=== PATIENT | male | born 1945 | race Caucasian/White ===

== ENCOUNTER 2017-01-03 11:55 | Inpatient (IN) | payer MEDICARE ==
[~2017-01-03] VITALS: Ht 193 cm; Wt 123.2 kg
--- NOTE | ~2017-01-03 | OP ---
PATIENT NAME: KELLY DENTON MEDICAL RECORD: [id number] :47 LOCATION:D. D.2136 ADMISSION DATE:01/03/17 SURGEON: DORI PHELPS MD DATE OF OPERATION: 01/09/2017 PROCEDURE: EGD with biopsy. ATTENDING PHYSICIAN: Dr. Chauncey Min. INDICATIONS: Mr. Denton is a delightful 71-year-old gentleman with history of coronary artery disease, who was admitted secondary to symptoms of nausea, vomiting, upper abdominal pain and diarrhea. His lipase was mildly elevated at [address] of the abdomen and pelvis 01/08/2017 showed no acute findings seen in the abdomen or pelvis, diverticulosis, the liver appeared to have mild fatty infiltration along with a small hiatal hernia. There is no significant peripancreatic stranding. His triglycerides were 142 on 01/04/2017. He is beginning to feel better. He has no history of significant alcohol consumption. He drinks alcohol on a rare occasion. He has had a cholecystectomy in the past. Ultrasound 01/07/2017 showed lobulation of the kidneys, mild increased echogenicity in the renal cortex and mildly prominent liver and spleen in size and the gallbladder was not present. Because he has had some persistent nausea with some vomiting, he presents for inpatient EGD. PREMEDICATIONS: Total IV anesthesia (propofol 220 mg). INSTRUMENT: Olympus video gastroscope. PROCEDURE AND FINDINGS: After receiving informed consent, Mr. Denton's posterior pharynx was anesthetized with Cetacaine spray, placed in left lateral decubitus position, sedated as per anesthesia. After achieving an adequate level of sedation, gastroscope was introduced per orally and advanced to the duodenum without difficulty. The esophageal mucosa was notable for an irregularity in the mucosa at the Z-line suggestive of gastroesophageal reflux disease and biopsies were taken from the distal third of the esophagus. Small hiatal hernia is present. Gastric mucosa was notable for patchy erythema in the fundus and antrum and antral biopsies were obtained. There are a few small nonhemorrhagic ulcers in the distal body of the stomach and then numerous erosions noted in the body and antrum of the stomach (nonhemorrhagic). There were few waves of gastric peristalsis was noted during the exam. The duodenal bulbar mucosa was notable for prominent folds and erythema at the apex and biopsies were obtained. In the second portion of duodenum, the major ampulla was identified and appeared slightly prominent (may be a normal variant) and was biopsied. The gastroscope was then withdrawn. Mr. Denton tolerated the procedure well and no immediate complications. ASSESSMENT: 1. Irregular Z-line suggestive of gastroesophageal reflux disease, status post biopsy. 2. Small hiatal hernia. 3. Erosive gastritis, status post antral biopsies. 4. A few small gastric ulcers, nonhemorrhagic. 5. Duodenitis. 6. Resolving pancreatitis (lipase has been normal for several days). Etiology of pancreatitis, suspected to be viral secondary to a viral syndrome or dehydration. OPERATIVE REPORT [id number] KELLY DENTON RECOMMENDATIONS: 1. Follow up histopathology. 2. Avoid nonsteroidal anti-inflammatory drugs. 3. Recommend daily aspirin-B enteric coated. 4. Protonix 40 mg daily. 5. Reglan 5 mg a.c. (continue for several weeks and then discontinue if symptoms resolved). 6. Recommend follow up EGD, [place] corporate planner in 2 months to document healing of gastric ulcers. TRANSINT:[id number] Voice Confirmation ID: [id number] DOCUMENT ID: [id number] DORI PHELPS MD CC: SENIA MIRAMONTES MD [id number] DICTATION DATE: 01/09/17 1555 AQUATICS ASSISTANT DEPARTMENT HEAD: 01/09/17 2241 ADM IN [facility] [address] [place] [address]
[2017-01-03 12:38] LABS: BASOPHILS 0.1 % (0.0-2.0); EOSINOPHILS 0.1 % (0-7); HEMATOCRIT 43.6 % (42.0-54.0); HEMOGLOBIN 14.9 g/dL (13.5-17.5); IMMATURE GRANULOCYTES 0.2 % (0-5); MCH 30.4 pg (26.0-34.0); MCHC 34.2 g/dL (31.0-37.0); MEAN PLATELET VOLUME 10.5 fL (7.4-10.4); MONOCYTES 2.7 % (2-11); NEUTROPHILS 82.9 % (40-80); PLATELET COUNT 195 10x3/uL (130-400); RDW 12.7 % (11.5-14.5); WBC 9.2 10x3/uL (4.8-10.8)
[2017-01-03 12:51] LABS: ALBUMIN 3.5 g/dL (3.4-5.0); ANION GAP 16.9 mmol/L (8-16); BILIRUBIN - TOTAL 1.11 mg/dL (0.2-1.3); CALCIUM 8.2 mg/dL (8.5-10.1); CARBON DIOXIDE 21.9 mmol/L (21.0-32.0); CREATININE - SERUM 2.1 mg/dL (0.6-1.3); POTASSIUM - SERUM 4.8 mmol/L (3.5-5.1); PROTEIN - SERUM 7.1 g/dL (6.4-8.2)
[2017-01-03 16:59] LABS: APPEARANCE CLEAR (CLEAR); BILIRUBIN NEGATIVE (NEGATIVE); COLOR YELLOW (YELLOW); GLUCOSE 100 mg/dL (NEGATIVE); KETONE NEGATIVE (NEGATIVE); LEUKOCYTE ESTERASE NEGATIVE (NEGATIVE); NITRITE NEGATIVE (NEGATIVE); PROTEIN 2+ mg/dL (NEGATIVE); UROBILINOGEN NORMAL (NORMAL)
[2017-01-03 17:01] LABS: BACTERIA FEW /hpf (NONE SEEN); EPITHELIAL CELLS OCC /hpf (0-5); HYALINE CAST 0-5 /lpf (NONE SEEN); MUCUS <1+ /lpf (NONE SEEN); RED CELLS - URINE RARE /hpf (0-5); WHITE CELLS - URINE OCC /hpf (0-5)
--- NOTE | 2017-01-03 19:40 | NUR ---
received from ER, IV-LFA, FAMILY AT BEDSIDE, BED IS LOW, SRX2, PT IS A&O, DENIES ANY NEEDS, WILL CONTINUE TO MONITOR
[2017-01-03] MEDS ORDERED: AMBIEN10 MG PO (19:45)
[2017-01-03] MEDS ORDERED: ISOSORBIDE MONO30 M1 PO (19:45)
[2017-01-03] MEDS ORDERED: VITAMIN D250000 UNIT PO (19:46)
[2017-01-03] MEDS ORDERED: EFFIENT10 MG PO (19:48)
[2017-01-03] MEDS ORDERED: LEVEMIR INJ FLE (19:48)
[2017-01-03] MEDS ORDERED: ASPIRIN325 MG PO (19:49)
[2017-01-03] MEDS ORDERED: ENTRESTO 97 MG1 EACH PO (19:49)
[2017-01-03] MEDS ORDERED: COREG 3.1253.125 MG PO (19:50)
[2017-01-03] MEDS ORDERED: MORPHINE IMMEDI30 M1 PO (20:04)
[2017-01-03 20:27] VITALS: BP 136/80
[2017-01-04 00:04] VITALS: BP 94/54
[2017-01-04 01:33] VITALS: BMI 35.3
--- NOTE | 2017-01-04 03:23 | NUR ---
PT SLEEPING, CALL LIGHT IN REACH, WILL CONTINUE TO MONITOR
[2017-01-04 04:39] VITALS: BP 130/66
--- NOTE | 2017-01-04 07:45 | NUR ---
PATIENT AWAKE/ALERT ORIENT X4. LEFT FOREARM PERIPHERAL LINE D.5 LR AT 100CC/HR. VOICES NO C/O AT THIS TIME. CALL LIGHT WITHIN REACH
[2017-01-04 07:46] LABS: BASOPHILS 0.4 % (0.0-2.0); EOSINOPHILS 0.7 % (0-7); HEMATOCRIT 39.1 % (42.0-54.0); HEMOGLOBIN 13.4 g/dL (13.5-17.5); IMMATURE GRANULOCYTES 0.1 % (0-5); LYMPHOCYTES 30.4 % (15-50); MCH 30.3 pg (26.0-34.0); MCHC 34.3 g/dL (31.0-37.0); MCV 88.5 fL (80.0-100.0); MEAN PLATELET VOLUME 10.8 fL (7.4-10.4); MONOCYTES 6.8 % (2-11); NEUTROPHILS 61.6 % (40-80); PLATELET COUNT 185 10x3/uL (130-400); RBC 4.42 10x6/uL (4.20-6.10); RDW 12.9 % (11.5-14.5); WBC 7.2 10x3/uL (4.8-10.8)
[2017-01-04 08:00] VITALS: BP 123/58
[2017-01-04 08:20] LABS: CALCIUM 7.8 mg/dL (8.5-10.1); CARBON DIOXIDE 26.2 mmol/L (21.0-32.0); CHOL - HDL RATIO 4.6 ratio (2.3-4.9); CREATININE - SERUM 1.7 mg/dL (0.6-1.3); LDL-HDL RATIO 2.6 ratio (1.5-3.5); POTASSIUM - SERUM 4.2 mmol/L (3.5-5.1)
[2017-01-04 11:25] VITALS: BP 136/70
--- NOTE | 2017-01-04 11:55 | NUR ---
GLUCOSE LEVEL 148. NO SLIDING SCALE INSULIN GIVEN. PATIENT REMAINS NPO.
--- NOTE | 2017-01-04 12:33 | NUR ---
IV PATENT. CALL LIGHT IN REACH. LEONARDO NEEDS AT THIS TIME. WILL MONITOR.
--- NOTE | 2017-01-04 13:47 | NUR ---
PRN ZOFRAN GIVEN FOR NAUSEA
--- NOTE | 2017-01-04 15:19 | NUR ---
DR. MIRAMONTES INTO SEE PATIENT. NEW ORDERS RECEIVED. PATIENT CAN TAKE MEDICATION WITH SIPS OF H20
[2017-01-04 15:50] VITALS: BP 131/69
--- NOTE | 2017-01-04 16:57 | NUR ---
GLUCOSE LEVEL 145. NO SLIDING SCALE INSULIN GIVEN
--- NOTE | 2017-01-04 19:40 | NUR ---
ASSESSMENT DONE. PT LAYING IN BED WITH HOB ELEVATED. A/O. WATCHING TV. DENIES N/V OR PAIN. DENIES NEEDS. CALL LIGHT WITH IN REACH. WILL CONT. TO MONITOR.
[2017-01-04] MEDS ORDERED: PRAVACHOL80 MG PO (19:43)
[2017-01-04] MEDS ORDERED: NEURONTIN600 MG PO (19:44)
[2017-01-04 20:48] VITALS: BP 121/50
--- NOTE | 2017-01-04 23:38 | NUR ---
PT SLEEPING. APPEARS COMFORTABLE. RESP EVEN AND UNLABORED. CALL LIGHT WITH IN REACH. WILL CONT. TO MONITOR.
[2017-01-05 00:30] VITALS: BP 120/62
--- NOTE | 2017-01-05 01:56 | NUR ---
PT C/O NAUSEA. STATES HE AMBULATED TO THE RESTROOM AND WHEN HE GOT BACK TO THE BED HE WAS NAUSEATED. DENIES VOMITING OR ABD PAIN. CALL LIGHT WITH IN REACH. WILL CONT. TO MONITOR.
--- NOTE | 2017-01-05 02:51 | NUR ---
PT C/O ABD AND VOMITING. MORPHINE GIVE IV. PROVIDED EMESIS BASIN. COOL WASH CLOTH GIVEN FOR PT TO WASH FACE WITH. WILL CONT. TO MONITOR.
--- NOTE | 2017-01-05 03:14 | NUR ---
ROUTE DELIVERY DRIVER AT BEDSIDE FOR VS, NEEDS ADDRESSED. CALL LIGHT IN REACH. WILL CONT TO MONITOR.
--- NOTE | 2017-01-05 03:33 | NUR ---
PT'S IV SITE RED, PT C/O PAIN AT IV SIDE. IV REMOVED. RE-SITED NEW IV TO PT'S RIGHT HAND WITH A 22G X1 ATTEMPT. WILL CONT. TO MONITOR.
--- NOTE | 2017-01-05 03:49 | NUR ---
PT WITH INCREASE N/V AND ABD PAIN. ZOFRAN HAS BEEN INEFFECTIVE. NOTIFIED PANTRY COOK TO SEE IF ER DR WILL OK ORDER FOR PHENERGAN. WILL CONT. TO MONITOR.
--- NOTE | 2017-01-05 04:15 | NUR ---
PHENERGAN IV GIVEN PER ORDER. WILL CONT. TO MONITOR.
[2017-01-05 04:30] VITALS: BP 183/89
--- NOTE | 2017-01-05 05:51 | NUR ---
PT REPORTS SOME RELEIF FROM PHENERGAN. STATES " I AM STILL NAUSEATED, BUT IT IS A LITTLE BETTER." DENIES OTHER NEEDS AT THIS TIME. DENIES PAIN. CALL LIGHT WITH IN REACH. WILL CONT. TO MONITOR.
[2017-01-05 06:35] LABS: BASOPHILS 0.4 % (0.0-2.0); EOSINOPHILS 0.9 % (0-7); HEMATOCRIT 42.6 % (42.0-54.0); HEMOGLOBIN 14.5 g/dL (13.5-17.5); IMMATURE GRANULOCYTES 0.1 % (0-5); LYMPHOCYTES 17.1 % (15-50); MCH 30.3 pg (26.0-34.0); MCV 88.9 fL (80.0-100.0); NEUTROPHILS 76.5 % (40-80); PLATELET COUNT 217 10x3/uL (130-400); RBC 4.79 10x6/uL (4.20-6.10); RDW 12.7 % (11.5-14.5)
[2017-01-05 06:52] LABS: ANION GAP 12.8 mmol/L (8-16); CALCIUM 8.3 mg/dL (8.5-10.1); CARBON DIOXIDE 25.5 mmol/L (21.0-32.0); CREATININE - SERUM 1.5 mg/dL (0.6-1.3); POTASSIUM - SERUM 4.3 mmol/L (3.5-5.1)
[2017-01-05 07:04] LABS: WBC 9.3 10x3/uL (4.8-10.8)
--- NOTE | 2017-01-05 07:46 | NUR ---
AM ROUNDS - PT IN BED ON BACK. C/O 8 PAIN IN STOMACH AND NAUSEA. RIGHT HAND 22G D5 LR AT 100CC/HR. WILL CONTINUE TO MONITOR.
[2017-01-05 08:00] VITALS: BP 179/98
--- NOTE | 2017-01-05 08:42 | NUR ---
0840-EMESIS OF LIGHT YELLOW TO WASH BASIN. ZOFRAN 4 MG AND MORPHINE SULFATE 2 MG GIVEN SLOW IVP TO RIGHT WRIST. UP IN CHAIR. STATES THAT HE HAD TAKEN ORAL MORPHINE IN THE PAST AND HAS STOPPED TAKING IT. WILL CONTINUE TO FOLLOW.
--- NOTE | 2017-01-05 10:01 | NUR ---
CALL PLACED TO MIRIAN SHAH APN TO SEE ABOUT WHY ENTRESTO 97MG HAS BEEN HELD STATES HE IS NOT SUPPOSE TO MISS A DOSE. AWAITING CALL BACK.
[2017-01-05 12:00] VITALS: BP 154/82
[2017-01-05 13:08] VITALS: Ht 193 cm; Wt 123.2 kg
--- NOTE | 2017-01-05 15:27 | NUR ---
PATIENT STARTED ON CLEAR LIQUIDS PER MIRIAN SHAH APN. WATER AND JELLO GIVEN, INSTRUCTED PATIENT TO GO SLOWLY ON THEM.
--- NOTE | 2017-01-05 19:30 | NUR ---
RECEIVED REPORT, PT SITTING UP IN CHAIR, DENIES ANY NEEDS AT THIS TIME WILL CONTINUE TO MONITOR, CALL LIGHT IN REACH
[2017-01-05 22:46] VITALS: BP 113/71
--- NOTE | 2017-01-06 00:27 | NUR ---
CONVENIENCE STORE MANAGER AT BEDSIDE FOR VS. NEEDS ADDRESSED AT THIS TIME. CALL LIGHT IN REACH. WILL CONT TO MONITOR.
[2017-01-06 02:33] VITALS: BP 171/78
[2017-01-06 06:09] LABS: BASOPHILS 0.3 % (0.0-2.0); HEMOGLOBIN 14.6 g/dL (13.5-17.5); IMMATURE GRANULOCYTES 0.2 % (0-5); LYMPHOCYTES 20.2 % (15-50); MCH 30.2 pg (26.0-34.0); MONOCYTES 7.4 % (2-11); NEUTROPHILS 70.9 % (40-80); PLATELET COUNT 179 10x3/uL (130-400); RBC 4.83 10x6/uL (4.20-6.10); RDW 12.8 % (11.5-14.5); WBC 8.8 10x3/uL (4.8-10.8)
[2017-01-06 06:37] VITALS: BP 186/79
[2017-01-06 06:39] LABS: ANION GAP 11.8 mmol/L (8-16); CALCIUM 8.6 mg/dL (8.5-10.1); CARBON DIOXIDE 27.2 mmol/L (21.0-32.0); CREATININE - SERUM 1.5 mg/dL (0.6-1.3)
[2017-01-06 08:02] VITALS: BP 191/96
--- NOTE | 2017-01-06 08:37 | NUR ---
PT TOOK HOME MEDS. ENTRESTO 97-103MG. ONE TABLET PO.
[2017-01-06 12:04] VITALS: BP 184/106
[2017-01-06 15:54] VITALS: BP 148/84
--- NOTE | 2017-01-06 16:50 | NUR ---
PT TOOK HIS HOME SUPPLY OF ENTRESTO 97-103, ONE TABLET BY MOUTH.
[2017-01-06 21:58] VITALS: BP 149/70
[2017-01-07 02:03] VITALS: BP 142/70
--- NOTE | 2017-01-07 03:53 | NUR ---
NURSE ROUNDS 21:00 01/06/17 - PT LYING IN BED, AWAKE, ALERT, ORIENTED, DENIED NAUSEA AND PAIN AT THIS TIME. PT UP AD TEZ WITHOUT ANY DIFFICULTY. DENIES ANY ACUTE NEEDS. CONTINUE TO MONITOR CLOSELY. BED LOW, CALL LIGHT IN REACH, SIDE RAILS X2, HOB 10 DEGREES.
[2017-01-07 05:44] VITALS: BP 175/82
[2017-01-07 06:09] LABS: BASOPHILS 0.3 % (0.0-2.0); HEMATOCRIT 42.6 % (42.0-54.0); HEMOGLOBIN 14.5 g/dL (13.5-17.5); IMMATURE GRANULOCYTES 0.1 % (0-5); LYMPHOCYTES 22.2 % (15-50); MCH 30.1 pg (26.0-34.0); MCV 88.6 fL (80.0-100.0); MEAN PLATELET VOLUME 10.5 fL (7.4-10.4); MONOCYTES 5.7 % (2-11); NEUTROPHILS 70.7 % (40-80); PLATELET COUNT 193 10x3/uL (130-400); RBC 4.81 10x6/uL (4.20-6.10); RDW 12.4 % (11.5-14.5)
[2017-01-07 06:57] LABS: CALCIUM 8.2 mg/dL (8.5-10.1); CARBON DIOXIDE 28.7 mmol/L (21.0-32.0); CREATININE - SERUM 1.4 mg/dL (0.6-1.3); POTASSIUM - SERUM 3.7 mmol/L (3.5-5.1); THYROID STIMULATING HORMONE 1.73 uIU/mL (0.36-3.74)
--- NOTE | 2017-01-07 07:46 | NUR ---
AM ROUNDING- RECEIVED REPORT FROM LITHOGRAPHED PLATE INSPECTOR NURSE KUSH, MEAGAN. PT IS CURRENTLY UP GOING TO BATHROOM. FSBS ACHS. ON ROOM AIR. NO MONITOR. IV SEEN TO RIGHT WRIST WITH D5/LR RUNNING AT 100CC/HR. PT IS ALERT AND ORIENTED. UP AD TEZ. PT STATES HE HAS HAD A BETTER NIGHT LAST NIGHT THAN HE HAS HAD IN A FEW DAYS. PT STATES HE HAD NO N/V LAST NIGHT. NO NEED AT CURRENT TIME. WILL CONTINUE TO MONITOR AND CONTINUE WITH PLAN OF CARE.
[2017-01-07 09:06] VITALS: BP 170/80
[2017-01-07 13:32] VITALS: BP 90/60
--- NOTE | 2017-01-07 16:56 | NUR ---
CHECKED PTS BLOOD PRESSURE MANUALLY AND GOT 150/79 IN LEFT ARM.
--- NOTE | 2017-01-07 17:17 | NUR ---
Patient Name: KELLY DENTON Admission Status: ER Accout number: [id number] Admission Date: 01-03-2017 : 1945 Admission Diagnosis:UNSPECIFIED ABDOMINAL PAIN Attending: JORJE Current LOS: 4 Anticipated DC Date: 01-08-2017 Planned Disposition: Home Primary Insurance: MEDICARE PART A ONLY Discharge Planning Comments: * Is the patient Alert and Oriented? Yes 0 * How many steps to enter\exit or inside your home? NONE 0 * PCP DR[facility] WELCH, [facility] [place] [place] 0 * Pharmacy [facility] IN [facility] OR [facility]. 0 * Preadmission Environment Home with Family 0 * ADLs Independent 0 * Equipment Cane 0 * Other Equipment [facility] MED[facility] EQUIPMENT PROVIDER 0 * List name and contact numbers for known caregivers / representatives who currently or will assist patient after discharge: RENA DENTON, SPOUSE, 0 * Community resources currently utilized None 0 * Please name any agencies selected above. NONE 0 * Additional services required to return to the preadmission environment? No 0 * Can the patient safely return to the preadmission environment? Yes 0 * Has this patient been hospitalized within the prior 30 days at any hospital? No 0 CM MET WITH PT AND SPOUSE IN ROOM TO DISCUSS DISCHARGE PLANNING AND NEEDS. PT REPORTS LIVING AT HOME INDEPENDENTLY WITH SPOUSE. PT HAS [facility] AND [facility] EQUIPMENT PROVIDER. PT HAS NO OUTSIDE SERVICES ASSISTING IN THE HOME. CM DISCUSSED AVAILABILITY OF HOME HEALTH, REHAB SERVICES AND MEDICAL EQUIPMENT. PT DENIES DISCHARGE NEEDS, REPORTS SPOUSE WILL PICK HIM UP FOR DISCHARGE HOME BACK TO [place]. IMPORTANT MESSAGE FROM MEDICARE PROVIDED AND EXPLAINED. Mercury Cell Cleaner: Rios Vazquez
[2017-01-07 18:06] VITALS: BP 157/82
--- NOTE | 2017-01-07 18:34 | NUR ---
PT IS CURRENTLY LAYING IN BED ON LEFT SIDE WITH EYES CLOSED RESTING. NO NEED AT CURRENT TIME. WILL CONTINUE TO MONITOR.
[2017-01-07 20:00] VITALS: BP 166/89
--- NOTE | 2017-01-07 20:37 | NUR ---
PT LYING IN BED, AWAKE, ALERT, ORIENTED, STILL C/O NAUSEA. PT STATES HE HAS BEEN UNABLE TO TOLERATE HIS DINNER TRAY. PT C/O GREAT BACK PAIN R/T CHRONIC HX OF BACK PROBLEMS AND SURGERIES. WILL TRY TO FIND AN OVERLAY MATTRESS TOPPER. DENIES ANY OTHER ACUTE NEEDS. CONTINUE TO MONITOR CLOSELY. BED LOW, CALL LIGHT IN REACH, SIDE RAILS X 2, HOB FLAT. PT UP TO CHAIR AT TIMES.
--- NOTE | 2017-01-07 22:30 | NUR ---
PT C/O OF PAIN AT LOWER BACK, A 8 AT A SCALE OF 0-5, PAIN MED JOSE.
[2017-01-08] VITALS: BP 164/82
[2017-01-08 04:00] VITALS: BP 170/87
--- NOTE | 2017-01-08 05:11 | NUR ---
PT HAS C/O CHRONIC BACK PAIN IN WHICH IS UNRELIEVED WITH PRN MORPHINE. I DID PLACE AN EGG CRATE OVERLAY ON PTS BED, IN WHICH HE STATES HAS HELPED. WILL CONTINUE TO MONITOR CLOSELY.
[2017-01-08 05:47] LABS: BASOPHILS 0.4 % (0.0-2.0); HEMATOCRIT 40.8 % (42.0-54.0); IMMATURE GRANULOCYTES 0.1 % (0-5); LYMPHOCYTES 23.1 % (15-50); MCHC 34.3 g/dL (31.0-37.0); MCV 87.6 fL (80.0-100.0); MEAN PLATELET VOLUME 10.5 fL (7.4-10.4); MONOCYTES 6.6 % (2-11); NEUTROPHILS 67.8 % (40-80); PLATELET COUNT 181 10x3/uL (130-400); RBC 4.66 10x6/uL (4.20-6.10); RDW 12.5 % (11.5-14.5); WBC 8.5 10x3/uL (4.8-10.8)
[2017-01-08 06:07] LABS: ANION GAP 12.9 mmol/L (8-16); CALCIUM 8.1 mg/dL (8.5-10.1); CARBON DIOXIDE 26.9 mmol/L (21.0-32.0); CREATININE - SERUM 1.5 mg/dL (0.6-1.3); POTASSIUM - SERUM 3.8 mmol/L (3.5-5.1)
[2017-01-08 07:25] VITALS: BP 154/76
--- NOTE | 2017-01-08 08:02 | NUR ---
AM ROUNDING DONE WITH PATIENT JUST RETURNING FROM RADIOLOGY. EGGCRATE MATTRESS SEEN ON BED. RIGHT WRIST WITH D5LR INFUSING AT 100 CC/HR. ON ROOM AIR. ON HEART MONITOR SHOWING PACED, HR 65. RATES PAIN 8/10 TO BACK AND STOMACH AREA. WILL CONTINUE TO MONITOR.
--- NOTE | 2017-01-08 11:25 | NUR ---
22G IV PLACED IN RIGHT FA. PT REPORTS FEELING DIZZY AND NAUSEATED. REPORT GIVEN TO YANNICK RHODES. IV IN RIGHT HAND DCD WITH TIP INTACT PER YANNICK RHODES. COMPLETE LINEN CHANGE DONE PER DEVEN FINNEGAN.
--- NOTE | 2017-01-08 12:20 | NUR ---
Nutrition Follow Up: Chart reviewed. Noted pt in pain and having nausea at this time. Pt is eating 13% meal avg (was not able to tolerate dinner tray last night per nursing note). Wt loss 9# since admit. No BM since admit. Labs reviewed - Cr, Glucose elevated; Amylase, Lipase WNL. Meds noted including D5 LR @ 75 ml/hr, Phenergan, Humulin. Pt continues not meeting est nutritional needs. Rec continue current diet, advancing as tolerated. RD will continue to monitor pt progress.
[2017-01-08 12:54] VITALS: BP 108/56
--- NOTE | 2017-01-08 13:30 | NUR ---
PATIENT IS AWAKE NOW REQUESTING HIS SUPPOSITORY. GIVEN. ENCOURAGED HIM TO HOLD IT LONG POSSIBLE, IF STOOL PRODUCES THEN TO CALL US SO WE CAN CHART IT.
--- NOTE | 2017-01-08 13:45 | NUR ---
CALLED TO ROOM WITH EMERGENCY LIGHT GOING OFF. PATIENT IN RESTROOM PAST HAVING A MEDIUM BROWN FORMED STOOL.
--- NOTE | 2017-01-08 15:09 | NUR ---
PATIENT IS MADE NPO FOR CT.
--- NOTE | 2017-01-08 15:39 | NUR ---
PATIENT TO AMBULATE TO NURSE STATION AND BACK TO ROOM.
[2017-01-08 16:19] VITALS: BP 144/84
--- NOTE | 2017-01-08 17:07 | NUR ---
TO RADIOLOGY VIA WHEELCHAIR.
--- NOTE | 2017-01-08 17:30 | NUR ---
RETURNS FROM RADIOLOGY.
[2017-01-08 20:00] VITALS: BP 169/93
[2017-01-09 02:00] VITALS: BP 152/87
[2017-01-09 06:20] LABS: ALBUMIN 3.1 g/dL (3.4-5.0); ANION GAP 12.4 mmol/L (8-16); BILIRUBIN - TOTAL 1.42 mg/dL (0.2-1.3); CALCIUM 8.3 mg/dL (8.5-10.1); CARBON DIOXIDE 27.3 mmol/L (21.0-32.0); CREATININE - SERUM 1.5 mg/dL (0.6-1.3); POTASSIUM - SERUM 3.7 mmol/L (3.5-5.1); PROTEIN - SERUM 6.1 g/dL (6.4-8.2)
--- NOTE | 2017-01-09 07:06 | NUR ---
PT SITTING UP TO CHAIR DENIES NEEDS WILL CONT TO MONITOR
[2017-01-09 07:31] VITALS: BP 163/81
--- NOTE | 2017-01-09 08:22 | CN ---
PATIENT NAME:KELLY VACA MEDICAL RECORD: [id number] : 49 LOCATION:. D.2136 ADMIT DATE: 01/03/17 ACCOUNT: [id number] CONSULTING PHYSICIAN: SUDEEP KANG MD REFERRING PHYSICIAN: SENIA MIRAMONTES MD DATE OF CONSULTATION: 01/06/2017 HISTORY OF PRESENT ILLNESS: Kelly Vaca is a 71-year-old gentleman with a known history of coronary artery disease, status post stenting, has a history of cardiomyopathy, improved on therapy, status post 3-lead ICD. He was admitted with pancreatitis. His blood pressures have been trending up. He is on a combination of Entresto and carvedilol. From a cardiovascular standpoint, he has been quite compensated with pancreatitis, no recent angina. He does try to exercise some, but this was limited by chronic back pain. We are asked to see him concerning his cardiovascular status. PAST MEDICAL HISTORY: History of: 1. Hypertension. 2. Osteoarthritis. 3. Pancreatitis. 4. Diabetes mellitus. ALLERGIES: None known. MEDICATIONS: Include morphine 15 mg b.i.d., Neurontin 600 t.i.d., aspirin 81 q. day, Ambien 10 q.h.s., Entresto 97/103 q.day, Pravachol 80 q.day, carvedilol 50 t.i.d., Imdur 30 q. day, and Effient 10 q. day SOCIAL HISTORY: , retired. He takes care of all his ADLs. ____. REVIEW OF SYSTEMS: The patient reports easy bruising but reports no swollen glands. The patient reports no fever, no night sweats, no significant weight gain, no significant weight loss. No significant exercise tolerance. The patient reports no dry eyes, no irritation, no vision change. Patient reports no difficulty hearing and no ear pain. Patient reports no frequent nose bleeds or nose and sinus problems. Patient reports on arm pain on exertion. No shortness of breath while lying down. No history of heart murmur. Patient reports no cough, no wheezing or coughing up blood. Patient reports no abdominal pain, no vomiting. Normal appetite. No diarrhea and not vomiting blood. No nausea and no constipation. Patient reports no incontinence. No difficulty urinating. No hematuria. No increased frequency. Patient reports no muscle aches. No weakness, no arthralgias, no back pain. No swelling of the extremities. Patient reports no abnormal mole, no jaundice, no rashes. Reports no loss of consciousness. No weakness and no numbness. No seizures, dizziness, or headaches. The patient reports no depression, no sleep disturbance, feeling safe in a relationship and no alcohol abuse. Patient reports on fatigue. Reports no runny nose or sinus pressure. No itching, no hives, and no frequent sneezing. PHYSICAL EXAMINATION: GENERAL: Pleasant, healthy-appearing gentleman, in no acute distress, appears stated age. VITAL SIGNS: Blood pressure 191/96 and pulse ____ regular. HEENT: Normocephalic and atraumatic. NECK: No bruits are noted. CONSULT REPORT [id number] KELLY VACA HEART: Regular. LUNGS: Clear. ABDOMEN: Soft and nontender. EXTREMITIES: Pulses are well preserved, 2+. There is no edema. IMPRESSION: Appears quite stable from a cardiovascular standpoint. He can be restarted on home meds. Thank you for the consultation. TRANSINT:[id number] Voice Confirmation ID: [id number] DOCUMENT ID: [id number] SUDEEP KANG MD at 0822 CC: [id number] DICTATION DATE: 01/06/17 145 COTTAGE CHEESE MAKER: 01/06/17 2330 ADM IN [place] [id number] [place] [id number]
--- NOTE | 2017-01-09 08:22 | EC ---
PATIENT:KELLY DENTON DATE OF SERVICE: 01/03/17 SEX: M MEDICAL RECORD: [id number] DATE OF : [birth year] LOCATION:D.M2 D.213 AGE OF PATIENT: 71 ADMISSION DATE: 01/03/17 REFERRING PHYSICIAN: INTERPRETING PHYSICIAN: SUDEEP KANG MD ECHOCARDIOGRAM REPORT ECHO CHARGES 4 ECHO COMPLETE CLINICAL DIAGNOSIS: ARRHYTHMIA ECHOCARDIOGRAPHIC MEASUREMENTS (adult normal given) AC root (d.<3.7cm) 4.1 LV Septum d (<1.2 cm> 1.6 Valve Excursion 1.7 LV Septum (systole) 2.3 Left Atria (s.<4.0cm> 4.3 LVPW d(<1.2cm) 1.5 RV (d.<2.3cm) 3.1 LVPW (sytole) 2.2 LV diastole(<5.6CM) 5.8 MV E-F(>70mm/sec) LV systole 3.7 LVOT Diameter 2.2 MV exc.(>10mm) Est.ejection fraction (50-75%) Pericardial Effusion N DOPPLER: LVIT A 47.0 E 112 LA RVSP 33.0 LVOT 102 AOP1/2T Asc. Ao 127 RVOT 62.0 RA PA 77.0 AV Gradient Peak 6.4 AV Mean 3.2 AV Area 3.7 MV Gradient Peak 5.1 MV Mean 1.8 MV Area COMMENTS: Greige Goods Marker: Deng [employer] Photography Professor:Pardeep Gunter TAPE# PACS DATE OF SERVICE: 01/07/2017 Adequate 2D echo, color flow, spectral Doppler and M-mode. Mild LVH. LV internal dimensions are in the upper limits of normal, mildly dilated at 5.8 cm. LV is globally hypokinetic, EF reduced, EF estimated at 30% to 35%. Aortic valve sclerosis without stenosis by Doppler interrogation. Left atrium is mildly dilated at 4.3 cm. Mitral valve shows no prolapse. Mild MR. Right-sided chamber is grossly normal. Trace TR. TRANSINT:[id number] Voice Confirmation ID: [id number] DOCUMENT ID: [id number] ECHOCARDIOGRAM REPORT [id number] KELLY DENTON SUDEEP KANG MD at 0822 CC: [id number] DICTATION DATE: 01/07/17 1345 DB2 SYSTEMS PROGRAMMER: 01/07/17 2145 ADM IN [facility] [address] [facility], [facility]
--- NOTE | 2017-01-09 08:34 | NUR ---
PT REQUESTS SHOWER AT THIS TIME. ASSISTED PT TO SHOWER AND COMPLETE LINEN CHANGE GIVEN
--- NOTE | 2017-01-09 11:16 | NUR ---
PT SITTING UP IN BED AT BEDSIDE. WAITING ON EGD. WILL CONT TO MONITOR
[2017-01-09 12:52] VITALS: BP 147/73
--- NOTE | 2017-01-09 17:43 | NUR ---
PT LAYING TO R SIDE SLEEPING NO S/S DISTRESS NOTED WILL CONT TO MONITOR
--- NOTE | 2017-01-09 19:24 | NUR ---
INITIAL ROUNDS COMPLETED. PT AWAKE; DENIES ANY DISCOMFORT. WILL CONTINUE TO MONITOR.
[2017-01-09 20:23] VITALS: BP 154/75
--- NOTE | 2017-01-09 22:12 | NUR ---
PM FSBS 146. NO COVERAGE NEEDED. PM SNACK SERVED. PM MES GIVNE. PT CURRETNLY RESTING WITH EYES CLOSED. RESP EVEN AND REGULAR. SR UP X2, CALL LIGHT WITHIN REACH.
--- NOTE | 2017-01-09 23:56 | NUR ---
PT RESTING WITH EYES CLOSED. RESP EVEN AND REGULAR. SR UPX 2, CALL LIGHT WITHIN REACH.
[2017-01-10 00:07] VITALS: BP 166/81
--- NOTE | 2017-01-10 02:30 | NUR ---
PT RESTING WITH EYES CLOSED. RESP EVEN AND REGULAR. SR UP X2, CALL LIGHT WITHIN REACH.
--- NOTE | 2017-01-10 04:14 | NUR ---
PT PULLED IV OUT WITH CATHETER INTACT. PT REFUSES ANOTHER IV. WILL CONTINUE TO MONITOR.
[2017-01-10 04:26] VITALS: BP 185/79
--- NOTE | 2017-01-10 06:01 | NUR ---
VSS THROUGHUOT NGIHT. SR/PACED PER CM. PT STATED HAD ONLY MINIMAL DISCOMFORT. NEEDS MET; WILL CONTINUE TO MONITOR.
[2017-01-10 07:06] LABS: BASOPHILS 0.2 % (0-2); EOSINOPHILS 2.1 % (0-7); HEMATOCRIT 39.4 % (42.0-54.0); HEMOGLOBIN 13.4 g/dL (13.5-17.5); IMMATURE GRANULOCYTES 0.2 % (0-5); LYMPHOCYTES 19.3 % (15-50); MCH 29.8 pg (26.0-34.0); MCV 87.8 fL (80.0-100.0); MEAN PLATELET VOLUME 10.7 fL (7.4-10.4); MONOCYTES 7.3 % (2-11); NEUTROPHILS 70.9 % (40-80); PLATELET COUNT 166 10x3/uL (130-400); RBC 4.49 10x6/uL (4.20-6.10); RDW 12.6 % (11.5-14.5); WBC 9.7 10x3/uL (4.8-10.8)
[2017-01-10 07:21] LABS: ALBUMIN 3.1 g/dL (3.4-5.0); ANION GAP 11.2 mmol/L (8-16); BILIRUBIN - TOTAL 1.5 mg/dL (0.2-1.3); CALCIUM 8.5 mg/dL (8.5-10.1); CARBON DIOXIDE 28.3 mmol/L (21.0-32.0); CREATININE - SERUM 1.4 mg/dL (0.6-1.3); POTASSIUM - SERUM 3.5 mmol/L (3.5-5.1)
--- NOTE | 2017-01-10 07:54 | NUR ---
AM ROUNDS - PT AWAKE IN BED ON BACK REQUESTING ITEMS TO GET INTO THE SHOWER AND GET CLEANED UP. PT STATES 5/10 BACK PAIN BUT DOES NOT WANT ANY MEDS AT THIS TIME. MONITOR SHOWING SR, HR 72, PACED. WILL CONTINUE TO MONITOR.
[2017-01-10 08:12] VITALS: BP 145/81
--- NOTE | 2017-01-10 12:30 | NUR ---
WRITTEN D/C ORDERS GIVEN TO PT. PT DID NOT HAVE AN IV OR ANY DRESSINGS. PT TAKEN OUT VIA WHEELCHAIR BY STAFF, RN. HERE TO PICK PT UP. WILL D/C
== END 2017-01-10 12:36 | disposition home or self-care (01) | DRG 439 ==
LOC: D.ER 11:55 → D.M2 17:44 → OBSVTIME 17:44 → D.M2 17:45
PROVIDERS: Emergency Medicine; Family Medicine; Internal Medicine Gastroenterology; ADMIT Emergency Medicine
PROC: 0DB68ZX Excision of Stomach, Via Natural or Artificial Opening Endoscopic, Diagnostic (ICD-10-PCS; 2017-01-09)
PROC: 0DB58ZX Excision of Esophagus, Via Natural or Artificial Opening Endoscopic, Diagnostic (ICD-10-PCS; 2017-01-09)
PROC: 0DB98ZX Excision of Duodenum, Via Natural or Artificial Opening Endoscopic, Diagnostic (ICD-10-PCS; principal; 2017-01-09 14:00)
DX: K85.90 Acute pancreatitis without necrosis or infection, unspecified (principal); N17.9 Acute kidney failure, unspecified; F19.939 Other psychoactive substance use, unspecified with withdrawal, unspecified; I10 Essential (primary) hypertension; E11.9 Type 2 diabetes mellitus without complications; I25.10 Atherosclerotic heart disease of native coronary artery without angina pectoris; K44.9 Diaphragmatic hernia without obstruction or gangrene; K25.9 Gastric ulcer, unspecified as acute or chronic, without hemorrhage or perforation; R19.2 Visible peristalsis; K29.70 Gastritis, unspecified, without bleeding; K29.80 Duodenitis without bleeding; Z95.0 Presence of cardiac pacemaker; Z95.5 Presence of coronary angioplasty implant and graft; Z87.891 Personal history of nicotine dependence